=== PATIENT | female | born 2000 | race Caucasian/White ===

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

== ENCOUNTER 2021-11-13 11:06 | Outpatient (CLI) | payer MEDICAID, OTHER ==
[2021-11-13 17:52] LABS: BASOPHILS % (AUTO) 0.4 %; EOSINOPHILS # (AUTO) 0.2 10^3/uL (0.0-0.7); HCT - HEMATOCRIT 40.3 % (37.0-47.0); LYMPHOCYTES # (AUTO) 1.7 10^3/uL (1.5-3.5); LYMPHOCYTES % (AUTO) 25.1 %; MEAN CORPUSCULAR HGB CONC 32.3 g/dL (32.0-36.0); MEAN CORPUSCULAR VOLUME 89.8 fL (81.0-99.0); MEAN PLATELET VOLUME 10.2 fL (7.9-10.8); MONOCYTES # (AUTO) 0.4 10^3/uL (0.0-1.0); MONOCYTES % (AUTO) 6.2 %; NEUTROPHILS # (AUTO) 4.5 10^3/uL (1.5-6.6); NEUTROPHILS % (AUTO) 64.7 %; PLT - PLATELET COUNT 266 10^3/uL (130-450); RED BLOOD COUNT 4.49 10^6/uL (4.20-5.40); RED CELL DISTRIBUTION WIDTH 12.3 % (12.0-15.0); WHITE BLOOD COUNT 6.9 x10^3/uL (4.8-10.8)
[2021-11-13 18:17] LABS: ALBUMIN 4.3 g/dL (3.2-5.5); ALBUMIN/GLOBULIN RATIO 1.2 (1.0-2.2); BILIRUBIN,TOTAL 0.6 mg/dL (0.2-1.0); CALCIUM 9.3 mg/dL (8.5-10.3); CREATININE 0.7 mg/dL (0.4-1.0); POTASSIUM 4.2 mmol/L (3.5-5.0); TOTAL PROTEIN 7.8 g/dL (6.7-8.2)
[2021-11-13 18:27] LABS: THYROID STIMULATING HORMONE 1.68 uIU/mL (0.34-5.60)
[2021-11-13 23:58] LABS: CHLAMYDIA TRACHOMATIS DNA NEGATIVE (NEGATIVE); NEISSERIA GONORRHOEAE DNA NEGATIVE (NEGATIVE); TRICHOMONAS VAGINALIS DNA NEGATIVE (NEGATIVE)
[2021-11-14 02:08] LABS: RPR Non Reactive (Non Reactive)
[2021-11-14 06:09] LABS: HCV AB <0.1 s/co ratio (0.0-0.9); HIV SCREEN 4TH GENERATION Non Reactive (Non Reactive); HSV 1 IGG TYPE SPEC <0.91 index (0.00-0.90); HSV 2 IGG TYPE SPEC <0.91 index (0.00-0.90)
[2021-11-15 23:06] LABS: HSV IGM I/II COMBINATION <0.91 Ratio (0.00-0.90)
== END 2021-11-13 11:07 | disposition home or self-care (01) ==
LOC: LAB.N 11:06
PROVIDERS: ATTEND Nurse Practitioner Family
DX: Z11.3 Encounter for screening for infections with a predominantly sexual mode of transmission (principal)
CPT/HCPCS: 36415; 80053; 84443; 85025; 86592; 86695; 86696; 86803; 87389; 87491; 87591; 87661